=== PATIENT | female | born 1990 | race African-American/Black ===

== ENCOUNTER 2016-07-21 11:14 | Emergency (ER) | payer OTHER ==
[~2016-07-21] VITALS: Ht 172.7 cm; Wt 7.7 kg
[~2016-07-21 11:14] MED LIST: CYCLAFEM 1/35 31 TAB PO; FERRALET 901 TAB PO; HYDROCHLOROTHIA25 M1 PO; IBUPROFEN800 M1 PO; LEVSIN-SL0.125 MG SL; PERCOCET 5-3251 EACH PO; PROMETHAZINE HC25 M3 PO; ULTRAM50 M1 PO; ZOFRAN ODT4 M1 SL
[2016-07-21 11:23] VITALS: BP 148/70
--- NOTE | 2016-07-21 11:47 | ED THROAT/DENTAL COMPLAINT ---
History of Present Illness General Chief Complaint: Sore Throat, Dental Pain Stated Complaint: THROAT PAIN/BURNING Source: patient Exam Limitations: no limitations Vital Signs & Intake/Output Vital Signs & Intake/Output Vital Signs Date Time Temp Pulse Resp B/P Pulse O2 O2 Flow FiO2 Ox Delivery Rate 07/21 1123 97.4 68 18 148/70 100 Room Air Allergies Coded Allergies: No Known Allergies (12/25/15) Reconcile Medications Hydrochlorothiazide 25 MG TABLET 1 TAB PO DAILY BP (Reported) Hyoscyamine Sulfate (Levsin-Sl) 0.125 MG TAB.SUBL 1-2 TAB SL Q4P PRN abd pain Ibuprofen 800 MG TABLET 1 TAB PO TID PRN PAIN Ibuprofen 800 MG TABLET 1 TAB PO 4 TIMES/DAY PRN pain IRON CARB,GL/FA/B12/C/DOCUSATE (Ferralet 90 Tablet) 90 MG-1 MG-12 MCG-120 MG-50 MG TABLET 1 TAB PO DAILY SUPPLEMENT (Reported) NORETHINDRONE-ETHINYL ESTRAD (Cyclafem 1-35-28 Tablet) 1 MG-35 MCG TABLET 1 TAB PO DAILY CONTROL (Reported) Ondansetron (Zofran Odt) 4 MG TAB.RAPDIS 1 TAB SL TID PRN nausea Ondansetron (Zofran Odt) 4 MG TAB.RAPDIS 1 TAB SL TID PRN nausea Oxycodone HCl/Acetaminophen (Percocet 5-325 MG Tablet) 1 EACH TABLET 1-2 TAB PO TID PRN pain twenty....[id number] Promethazine HCl 25 MG TABLET 1 TAB PO Q6P PRN NAUSEA Tramadol HCl (Ultram) 50 MG TABLET 1-2 TAB PO Q6PRN PRN severe pain Triage Note: COMPLAINS OF SORE THROAT THAT STARTED YESTERDAY. ABLE TO SWALLOW WITHOUT DIFFICULTY Triage Nurses Notes Reviewed? yes Onset: Abrupt Duration: day(s): (2) Timing: recent history Injury Environment: home Severity: moderate Modifying Factors: Worsens With: other (SWALLOWING). : No Patient currently breastfeeds: No HPI: 25-year-old female with history of anemia who presents to the ER with chief complaint of sore throat since yesterday. She states it feels inflamed. Denies any fever or cough. 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 Denies any chest pain or shortness of breath. She did not take anything for pain prior to arrival today. Past History Travel History Traveled to [place] past 21 day No Medical History Any Pertinent Medical History? see below for history Neurological: NONE EENT: NONE Cardiovascular: hypertension Respiratory: NONE Gastrointestinal: GALL STONES Hepatic: cholelithiasis Renal: NONE Musculoskeletal: NONE Psychiatric: NONE Endocrine: NONE Blood Disorders: anemia Cancer(s): NONE INTERMODAL DISPATCHER/Reproductive: NONE Surgical History Surgical History: non-contributory Psychosocial History What is your primary language Korean Tobacco Use: Never used ETOH Use: denies use Illicit Drug Use: denies illicit drug use Family History Hx Contributory? No Review of Systems Review of Systems Constitutional: Denies: chills, fever. EENTM: Reports: throat pain (ERYTHEMA). Respiratory: Denies: cough, short of breath. Cardiovascular: Denies: chest pain. GI: Denies: abdominal pain, diarrhea, nausea, vomiting. Genitourinary: Reports: no symptoms. Musculoskeletal: Reports: no symptoms. Skin: Reports: no symptoms. Neurological/Psychological: Denies: anxiety. Hematologic/Endocrine: Denies: bruising, bleeding, polyuria, polydipsia. Immunologic/Allergic: Reports: no symptoms. All Other Systems: Reviewed and Negative Physical Exam Physical Exam General Appearance: well developed/nourished, alert, awake Head: atraumatic, normal appearance Eyes: Bilateral: normal appearance, PERRL, EOMI. Ears: Bilateral: canal normal, Tympanic normal. Nose: active bleeding Mouth/Throat: normal mouth inspection, pharynx normal Neck: normal inspection, supple, full range of motion Cardiovascular/Respiratory: normal breath sounds, normal peripheral pulses, regular rate/rhythm Neurologic/Psych: no motor/sensory deficits, awake, alert, oriented x 3 Skin: intact, normal color, warm/dry Core Measures ACS in differential dx? No Severe Sepsis Present: No Septic Shock Present: No Progress Differential Diagnosis: STREP PHARYNGITIS, VIRAL PHARYNGITIS Plan of Care: Orders Procedure Date/time Status THROAT CULTURE W/QUICK STREP 07/21 1120 Active Current Medications Sig/Ara Start time Last Medication Dose Stop Time Status Admin Dexamethasone 8 MG ONCE ONE 07/21 1200 AC (Decadron) 07/21 1201 Ibuprofen 800 MG ONCE ONE 07/21 1200 AC (Motrin) 07/21 1201 Quick strep is negative. Posterior pharynx does appear inflamed. Motrin, Decadlashae ordered. (ZEESHAN WOODS,DERIK) Departure Departure Time of Disposition: 1158 Disposition: HOME OR SELF CARE Condition: Stable Clinical Impression Primary Impression: Pharyngitis Referrals: YA STEELE APRN (PCP/Family) Additional Instructions: Take ibuprofen as needed for pain. Drink warm fluids and rinse with salt water. Follow-up to . Return to the ER for any changing or worsening symptoms. Departure Forms: Customer Survey General Discharge Information Prescriptions: Current Visit Scripts Ibuprofen 1 TAB PO TID PRN PAIN #20 TAB
[2016-07-21] MEDS ORDERED: IBUPROFEN800 M1 PO (11:58)
== END 2016-07-21 12:05 ==
LOC: ERH 11:14
DX: J02.9 Acute pharyngitis, unspecified (principal)